=== PATIENT | female | born 1990 | race Caucasian/White ===

== ENCOUNTER 2022-10-24 14:34 | Emergency (ER) | payer OTHER, SELFPAY ==
[2022-10-24 14:38] VITALS: BP 133/85; PULSE 65; RESP 18; TEMP 36.7; O2SAT 100; BMI 26.4
--- NOTE | 2022-10-24 15:03 | ED_ITS ---
HPI - General Adult General Date Seen: 10/24/22 Chief complaint: Urogenital Problems, Female Stated complaint: Abnormal Labs Time Seen by Provider: 10/24/22 14:46 Source: patient Mode of arrival: ambulatory Limitations: no limitations History of Present Illness HPI narrative: Patient is a 32-year-old woman who says she woke up in the middle the night with some dysuria. This persisted in the morning, and she used home UTI test to check for urinary tract infection. She said it was positive for leukocytes, indeterminate for nitrates and she thought she probably should be seen in clinic. She went to [facility] and was seen in urgent care where she says urinalysis was positive. Apparently she had other blood work done as well and her white blood cell count was 15, creatinine was reportedly 1 which she was told was on the ?high end of normal and it was recommended that she come get a CT scan because of concerns about possible pyelonephritis. Of note, she denies any fever, chills, flank pain, nausea, vomiting, or significant abdominal pain. She does have a little bit of suprapubic discomfort. At no time has she had severe abdominal or flank pain suggestive of kidney stone. She has no history of kidney stones. No suspicion of . She has had 1 previous UTI and this feels similar. She did take some ibuprofen this morning. General health is good, she denies any underlying medical history, allergies to azithromycin and hydrocodone. She does not smoke or drink. 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 Related Data Home Medications Medication Instructions Recorded Confirmed metoprolol succinate 25 mg 25 mg PO DAILY 10/24/22 10/24/22 tablet,extended release 24 hr Allergies Allergy/AdvReac Type Severity Reaction Status Date / Time azithromycin [From Zithromax] AdvReac Severe Verified 10/24/22 14:43 hydrocodone AdvReac Severe Verified 10/24/22 14:43 oxycodone AdvReac Severe Uncoded 10/24/22 14:43 Review of Systems Status of ROS: Reports: 10 or more systems reviewed and unremarkable except as noted in History and below PFSH PFSH Social History Smoking Status: Never smoker How often do you have a drink containing alcohol: monthly or less How often do you have six or more drinks on one occasion: Never AUDIT-C Alcohol total score: 1 Non-prescribed substance use: denies use Exam Narrative: Exam Narrative: Vital signs as noted above. In general, an alert, well-appearing patient. Head: Normocephalic, atraumatic. Eyes: Pupils are equal reactive. Extraocular movements are full. Conjunctivae are normal. ENT: Mucous membranes are moist. Throat is normal. Neck: Supple without lymphadenopathy. Heart: Regular rate and rhythm. No murmur or rub. Lungs: Clear bilaterally. No increased work of breathing, crackles or wheezes. Abdomen: Soft and nontender. No organomegaly. No CVA tenderness. Extremities: Well perfused. No edema. No calf tenderness. Pulses intact. Neurologic: Patient is alert and oriented to person and place. Speech is fluent. Face is symmetric. Moves all extremities equally. Affect: Normal. Skin: Warm and dry. Well perfused. Const: Vital Signs, click to edit/add: Vital Signs - 24 hr 10/24/22 14:38 Temperature 98.0 F Pulse Rate [Right Pulse Oximeter] 65 Respiratory Rate 18 Blood Pressure [Ri ght Upper Arm] 133/85 Pulse Oximetry 100 Oxygen Delivery Me thod Room Air Documenting provider has reviewed patient's vital signs: yes Course Course Hospital Course: I discussed with her that I do not really see an indication for CT scan here. Had a urinalysis done at clinic which reportedly showed findings consistent with urinary tract infection. She does not give a history which suggests kidney stone, which would be the only indication for CT scan. Her creatinine is normal. She is nontoxic in appearance. She does not describe any symptoms which are suggestive of pyelonephritis, and I discussed with her that in any case, this would be a diagnosis that we can make clinically. Did discuss with her that with her white blood cell count being slightly elevated, we could be a little more aggressive and treat for possible impending upper urinary tract infection and give her dose of IV antibiotics here. She declined any of these treatments, she said that she does not feel like she has pyelonephritis or kidney stones, she says she is very familiar with both of these working in labor and delivery. She feels that she just has urinary tract infection and would like to just do oral antibiotics. I think medically that is very reasonable. She is well aware of what to watch for and if she worsens, discussed with her that I would want her to come back and we can certainly pursue further treatment if she is not responding to antibiotics in the way that we would expect. Urine culture is presumably pending at clinic. Vital Signs Vital signs: Initial Vital Signs Temperature 98.0 F 10/24/22 14:38 Temperature Source Oral 10/24/22 14:38 Pulse Rate 65 10/24/22 14:38 Pulse Rhythm Regular 10/24/22 14:38 Pulse Strength 3+ Normal 10/24/22 14:38 Respiratory Rate 18 10/24/22 14:38 Blood Pressure 133/85 10/24/22 14:38 Blood Pressure Mean 101 10/24/22 14:38 Pulse Oximetry 100 10/24/22 14:38 Oxygen Delivery Method Room Air 10/24/22 14:38 Vital Signs Temperature 98.0 F 10/24/22 14:38 Pulse Rate 65 10/24/22 14:38 Respiratory Rate 18 10/24/22 14:38 Blood Pressure 133/85 10/24/22 14:38 Pulse Oximetry 100 10/24/22 14:38 Oxygen Delivery Method Room Air 10/24/22 14:38 Temperature 98.0 F 10/24/22 14:38 Pulse Rate 65 10/24/22 14:38 Respiratory Rate 18 10/24/22 14:38 Blood Pressure 133/85 10/24/22 14:38 Pulse Oximetry 100 10/24/22 14:38 Oxygen Delivery Method Room Air 10/24/22 14:38 Discharge Plan Discharge Clinical Impression: Urinary tract infection Patient Disposition: Home, Self-Care Condition: Stable Instructions: Urinary Tract Infection in Women (DC) Additional Instructions: Return to the ER for worsening symptoms such as fever, chills, vomiting, flank pain or other significant changes. Prescriptions: No Action metoprolol succinate 25 mg tablet extended release 24 hr 25 mg PO DAILY Follow Up/Referrals: Suzanne Em MD [Primary Care Provider] - Stand Alone Forms: [facility]est[facility] Info Instructions
== END 2022-10-24 15:13 | disposition home or self-care (01) ==
LOC: ED 15:10
PROVIDERS: Emergency Provider Emergency Medicine; PCP Family Medicine
DX: N39.0 Urinary tract infection, site not specified (principal)
CPT/HCPCS: 99283

== ENCOUNTER 2024-01-18 18:43 | Outpatient (CLI) | payer OTHER, SELFPAY ==
--- OUTSIDE RECORDS SUMMARY | 2024-01-19 03:17 | XMS_ITS | Clinical Summary ---
Author Organization [place] Address [address] [place] [address] Care Team Providers Care Advertising Operations Coordinator Name Role Phone No Ref-Primary, Physician Primary [...] of Treatment Not on file Care Teams Advertising Operations Coordinator Relationship Specialty Start Date End Date No Ref-Primary, Physician PCP - General 02/26/19
--- OUTSIDE RECORDS SUMMARY | 2024-01-19 03:17 | XMS_ITS | Referral Summary ---
Author Organization [place] Address [address] [place] [address] Care Team Providers Care Manager Sterile Processing Name Role Phone No Ref-Primary, Physician Primary [...] of Treatment Not on file Care Teams Manager Sterile Processing Relationship Specialty Start Date End Date No Ref-Primary, Physician PCP - General 02/26/19
--- OUTSIDE RECORDS SUMMARY | 2024-01-19 03:18 | XMS_ITS | Clinical Summary ---
Author Organization [employer] [facility] Address [place], [place] [address] Care Team Providers Care Grinding Wheel Inspector Name Role Phone Cary Thao Primary Care [...] MDV (Flu Clinic Only) 09/07/2017,03/16/2016 COVID-19 vaccine ([employer] 30mcg/0.3mL) PF, MDV 07/05/2020,06/15/2020 DTP 12/21/1992, 0,1988,1987,1988 [...] 9 ANABEL Hollis,BG LYN KJR Complications:None Delivery Location:[facility] Last Filed Vital Signs Vital Sign Reading [...] 16 Negative Negative 03/24/2022 1:59 PM CDT [facility] TYPE 18 Negative Negative 03/24/2022 1:59 PM CDT [facility] TRAL LABORATORY OTHER HIGH RISK TYPES Negative Negative 03/24/2022 1:59 PM CDT [facility] Other (Cervical) Non-Blood / Unknown 03/22/2022 11:34 AM CDT 03/23/2022 11:26 AM CDT Narrative [facility] - 03/24/2022 1:59 PM CDT HPV types 16, 18, 31, 33, 35, 39, 45, 51, 52, 56, 58, 59, 66 and 68 DNA were undetectable or below the pre-set threshold. Methodology: Mariaa Fredis 4800 HPV Test Suzanne Em MD MICROBIOLOGY [facility] [address] [place] [address], from Last 3 Months or Most Recently Relevant to Health Maintenance Advance Directives * Full Code (Latest Code Status on File) Date Activated Date Inactivated Comments 01/24/2018 9:39 PM 01/26/2018 2:57 PM Care Teams Grinding Wheel Inspector Relationship Specialty Start Date End Date Cary Thao PA [address] [place] [address] PCP - General Physician College Director 01/15/20
--- OUTSIDE RECORDS SUMMARY | 2024-01-19 03:18 | XMS_ITS | Clinical Summary ---
Author Organization [facility] Address [address] [place] [address] Care Team Providers Care Diesel Pile Hammer Operator Name Role Phone Ai Phillips MD Primary Care Provider Source Comments You are receiving this document as you are listed as the primary care provider,follow-up provider, or the patient has been referred to you for consultation.This is in compliance with the Medicare and[facility] EHR Incentive Program,which states Providers who transition their patient to another setting of careor provider of care or refers their patient to another provider of care shouldprovide summary care record for each transition of care or referral. [facility] Allergies No known active allergies [...] age to complete this topic Care Teams Diesel Pile Hammer Operator Relationship Specialty Start Date End Date Ai Phillips MD [address] [place] [address] PCP - General Family Practice 04/05/17
== END 2024-01-18 18:44 | disposition home or self-care (01) ==
LOC: AMB 01-19 03:16
PROVIDERS: PCP Family Medicine; Visit Provider Student in an Organized Health Care Education/Training Program
DX: S09.90XA Unspecified injury of head, initial encounter (principal); V49.69XA Unspecified car occupant injured in collision with other motor vehicles in traffic accident, initial encounter; Y92.410 Unspecified street and highway as the place of occurrence of the external cause
CPT/HCPCS: A0998

== ENCOUNTER 2024-01-18 19:33 | Emergency (ER) | payer OTHER, SELFPAY ==
--- OUTSIDE RECORDS SUMMARY | 2024-01-18 19:37 | XMS_ITS | Clinical Summary ---
Author Organization [facility] Address [address] [place] [id number] Care Team Providers Care Patient Access Registrar Name Role Phone No Ref-Primary, Physician Primary Care Provider Allergies Active Allergy Reactions Criticality Noted Date Comments Azithromycin Other (See Comments) 07/04/2018 Diarrhea, cramping, and nausea Oxycodone-Acetaminophen GI Disturbance,Nausea and Vomiting 09/18/2017 Medications Medication Sig Dispensed Refills Start Date End Date Status Magnesium Oxide 250 MG TABS 06/18/2015 Active metoprolol succinate ER (TOPROL-XL) 25 MG 24 hr tabletIndications:Pa lpitations,MVP (mitral valve prolapse) Take 1 tablet (25 mg) by mouth daily 90 tablet 3 02/26/2019 Active FLUoxetine (PROZAC) 20 MG capsuleIndications:A nxiety Take 1 capsule (20 mg) by mouth daily 90 capsule 01/16/2020 Active Active Problems Problem Noted Date Diagnosed Date History of viral meningitis - 2015. Consulted with neurology and was advised to take magnesium. 02/26/2019 Anxiety 02/26/2019 MVP (mitral valve prolapse) - Dx'd 2009 after sx of palpitations. Last cardiology consult/echo 2018 was normal no evidence for MVP. Could discontinue meds, but pt notes improvement so will continue. 02/26/2019 Palpitations - from MVP 02/26/2019 H/O breast augmentation 06/18/2007 Immunizations Name Administration Dates Next Due Flu, Unspecified 04/28/2015 Hepatitis B, Peds 07/18/2000, 1,02/07/2000,1999 Historical DTP/aP 12/21/1992, 0,1988,1987,1988 Influenza Vaccine >6 months,quad, PF ,04/05/2018,09/07/2017,2015 Influenza Vaccine, 6+MO IM (QUADRIVALENT W/PRESERVATIVES) 09/07/2017,03/16/2016 MMR 01/10/2000,04/06/1989 OPV, trivalent, live 12/21/1992,07/02/18 90,1988,1987 TDAP Vaccine (Adacel) 10/31/2017,02/01/2017 Td (Adult), Adsorbed 01/10/2000 Family History Medical History Relation Comments Anxiety Disorder Maternal Grandmother Cerebrovascular Disease Paternal Uncle 50's Anxiety Disorder Sister Depression Sister Breast Cancer No family hx of Colon Cancer No family hx of Coronary Artery Disease No family hx of Diabetes No family hx of Hyperlipidemia No family hx of Hypertension No family hx of Thyroid Disease No family hx of Relation Status Comments Maternal Grandmother Paternal Uncle Sister Social History Tobacco Use Types Packs/Day Years Used Date Smoking Tobacco: Never Smokeless Tobacco: Never Alcohol Use Standard Drinks/Week Comments Yes 0 (1 standard drink = 0.6 oz pure alcohol) Occasional - no more than 1 drink/day. PHQ-2 Answer Date Recorded PHQ-2 Score 0 02/26/2019 Adolescent Education Answer Date Record ed Getting School Help Needed Not on file 04/01 Sex and Gender Information Value Date Recorded Sex Assigned at Female 02/24/2019 9:03 AM CDT Gender Identity Female 02/24/2019 9:03 AM CDT Sexual Orientation Straight 02/24/2019 9: 03 AM CDT Last Filed Vital Signs Vital Sign Reading Time Taken Comments Blood Pressure 98/58 02/26/2019 8:29 AM CDT Pulse 79 02/26/2019 8:29 AM CDT Temperature 36.8 ??C (98.3 ??F) 02/26/2019 8:29 AM CD T Respiratory Rate - - Oxygen Saturation 99% 02/26/2019 8:29 AM CDT Inhaled Oxygen Concentration - - Weight 64 kg (141 lb) 02/26/2019 8:29 AM CDT Height 162.6 cm (5' 4) 02/26/2019 8:29 AM CDT Body Mass Index 24.2 02/26/2019 8:29 AM CDT Plan of Treatment Not on file Care Teams Patient Access Registrar Relationship Specialty Start Date End Date No Ref-Primary, Physician PCP - General 02/26/19
--- OUTSIDE RECORDS SUMMARY | 2024-01-18 19:37 | XMS_ITS | Referral Summary ---
Author Organization [facility] Address [address] [place] [id number] Care Team Providers Care Teacher Of The Sight Impaired Name Role Phone No Ref-Primary, Physician Primary [...] Vaccine (Adacel) 10/31/2017,02/01/2017 Td (Adult), Adsorbed 01/10/2000 Social History Tobacco Use Types Packs/Day Years [...] of Treatment Not on file Care Teams Teacher Of The Sight Impaired Relationship Specialty Start Date End Date No Ref-Primary, Physician PCP - General 02/26/19
--- OUTSIDE RECORDS SUMMARY | 2024-01-18 19:37 | XMS_ITS | Clinical Summary ---
Author Organization [facility] Address [place], [place] [address] Care Team Providers Care Director Of Payroll Name Role Phone Cary Thao Primary Care Provider Allergies Active Allergy Reactions Criticality Noted Date Comments Hydrocodone-Acetaminoph en GI Upset 09/18/2017 Oxycodone-Acetaminophen GI Upset 09/18/2017 Azithromycin Other - Describe In Comment Field 07/04/2018 Diarrhea, cramping, and nausea Medications Medication Sig Dispensed Refills Start Date End Date Status FLUoxetine (PROZAC) 40 mg capsuleIndications: Anxiety Take 1 Capsule (40 mg) by mouth every morning. 90 Capsule 3 03/22/2022 Active triamcinolone (ARISTOCORT; KENALOG) 0.1 % creamIndications:Sk in fissure Apply topically to affected area(s) three times daily. 15 g 03/22/2022 Active metoprolol succinate (TOPROL XL) 25 mg Sustained-Release tabletIndications:P alpitations TAKE 1 TABLET (25 MG) BY MOUTH ONCE DAILY. 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 Last TTE 2012. 05/19/2015 Anxiety 05/19/2015 Medication exposure during first trimester of pr egnancy Immunizations Name Administration Dates Next Due AMB INFLUENZA, IIV4 (AGE=>6M OS) MDV (Flu Clinic Only) 09/07/2017,03/16/2016 COVID-19 vaccine (Revision [employer] NTMT[employer]or 30mcg/0.3mL) PF, MDV 07/05/2020,06/15/2020 DTP 12/21/1992, 0,1988,1987,1988 Hepatitis B (Peds) 07/18/2000, 1,02/07/2000,1999 Influenza Virus, Unspecified 04/28/2015 Influenza, IIV4 03/22/2022, 9,04/05/2018,2017,03/16/2016 MMR 01/10/2000,04/06/1989 Oral Polio Vaccine 12/21/1992, 0,1988,1987 Td (Age >=7 Years) 01/10/2000 Tdap 10/31/2017,02/01/2017 Family History Medical History Relation Name Comments Good Health Father Cancer-prostate Maternal Grandfather Heart attack Maternal Grandfather 80s Good Health Mother Cancer-prostate Paternal Grandfather Heart failure Paternal Grandfather Stroke Paternal Grandmother Anxiety disorder Sister Depression Sister Relation Name Status Comments Father Maternal Grandfather Mother Paternal Grandfather Paternal Grandmother Sister Social History Tobacco Use Types Packs/Day Years Used Date Smoking Tobacco: Never Smokeless Tobacco: Never Tobacco Cessation:Counseling Given: Yes Alcohol Use Standard Drinks/Week Comments Yes 0 (1 standard drink = 0.6 oz pur e alcohol) On Occasion- not often PHQ-2 Answer Date Recorded PHQ-2 TOTAL SCORE 1 03/22/2022 Social Connections Answer Date Recorded Frequency of Communication with Friends and Fami ly Not on file 06/18/2021 Financial Resource Strain Answer Date R ecorded Difficulty of Paying Living Expenses Not on file 06/18/2021 Difficulty of Paying Living Expenses Not on file 06/18/2021 Sex and Gender Information Value Date Recorded Sex Assigned at Not on file Gender Identity Not on file Sexual Orientation Not on file Obstetrics History Para Term AB IAB SAB Ectopic Multiple Livin g Live Births 3 3 3 3 3 Date Outcome GA Total Labor Labor/2nd/3rd Weight Sex Type Anes PTL Prerna A1 A5 Name Clin 2011 Term 40w 2d 2.75 kg (6 lb 1 oz) M Vag-S pont Livin g 2012 Term 38w 0d 2.66 kg (5 lb 14 oz) M Vag-S pont Livin g 2017 Term 40w 4d 9h 00m 3.02 kg (6 lb 10.4 oz) F Vag-S pont Epidur al Livin g 9 9 ANABEL Hollis,BG LYN KJR Complications:None Delivery Location:[facility] Last Filed Vital Signs Vital Sign Reading Time Taken Comments Blood Pressure 105/70 10/24/2022 1:24 PM CDT Pulse 53 10/24/2022 1:24 PM CDT Temperature 36.5 ??C (97.7 ??F) 10/24/2022 1:24 PM CD T Respiratory Rate 16 01/26/2018 7:10 AM CDT Oxygen Saturation 99% 10/24/2022 1:24 PM CDT Inhaled Oxygen Concentration - - Weight 70.2 kg (154 lb 11.2 oz) 10/24/2022 1:24 PM CDT Height 163.8 cm (5' 4.5) 03/22/2022 11 :13 AM CDT Body Mass Index 26.14 03/22/2022 11:13 AM CDT Plan of Treatment Health Maintenance Due Date Last Done Comments HIV for age 15-65 01/01/2003 Hepatitis C screening for age 18-79 01/01/2006 COVID-19 vaccine series ( season) 2023 07/05/2020, 06/15/2020 BMI (ht and wt on same day) for age 18+ 03/22/2023 03/22/2022, 06/02/2021, 01/18/2021, Additional history exists Depression screening for age 12+ 03/22/2023 03/22/2022, 01/18/2021, 01/21/2020, Additional history exists Influenza for age 9-49 02/17/2024 , 03/14/2019, 04/05/2018, Additional history exists Pap test for age 21-65 03/22/2027 2, 03/22/2022, 05/19/2015 Tetanus booster 11/01/2027 10/31/2017, 01/16, 01/10/2000 Tdap Completed 10/31/2017, 02/01/2017 Pneumococcal series for age 6-64 Aged Out No longer eligible based on patient's age to complete this topic Procedures Procedure Name Priority Date/Time Associated Diagnosis Comments HPV THIN PREP Routine 03/22/2022 11:34 AM CDT Screening for cervical cancer from Last 3 Months or Most Recently Relevant to Health Maintenance Results * HPV HIGH RISK (03/22/2022 11:34 AM CDT) TYPE 16 Negative Negative 03/24/2022 1:59 PM CDT [facility] TYPE 18 Negative Negative 03/24/2022 1:59 PM CDT [facility] OTHER HIGH RISK TYPES Negative Negative 03/24/2022 1:59 PM CDT [facility] Other (Cervical) Non-Blood / Unknown 03/22/2022 11:34 AM CDT 03/23/2022 11:26 AM CDT Narrative [facility] - 03/24/2022 1:59 PM CDT HPV types 16, 18, 31, 33, 35, 39, 45, 51, 52, 56, 58, 59, 66 and 68 DNA were undetectable or below the pre-set threshold. Methodology: Mariaa Fredis 4800 HPV Test Suzanne Em MD MICROBIOLOGY [facility] [address] [place] [address], from Last 3 Months or Most Recently Relevant to Health Maintenance Advance Directives * Full Code (Latest Code Status on File) Date Activated Date Inactivated Comments 01/24/2018 9:39 PM 01/26/2018 2:57 PM Care Teams Director Of Payroll Relationship Specialty Start Date End Date Cary Thao PA [address] [place] [address] PCP - General Physician [employer] 01/15/20
--- OUTSIDE RECORDS SUMMARY | 2024-01-18 19:37 | XMS_ITS | Clinical Summary ---
Author Organization [facility] Address [address] [place] [address] Care Team Providers Care Warehouse Administrative Assistant Name Role Phone Ai Phillips MD Primary Care Provider Source Comments You are receiving this document as you are listed as the primary care provider,follow-up provider, or the patient has been referred to you for consultation.This is in compliance with the Medicare and[facility] Cent[facility]aid EHR Incentive Program,which states Providers who transition their patient to another setting of careor provider of care or refers their patient to another provider of care shouldprovide summary care record for each transition of care or referral. [facility] Allergies No known active allergies Medications Medication Sig Dispensed Refills Start Date End Date Status metoprolol succinate (TOPROL XL) 50 MG 24 hour release tablet Take 50 mg by mouth daily. 4 03/07/2017 Active FLUoxetine (PROZAC) 20 MG capsule Take 20 mg by mouth every morning. 0 03/16/2017 Active magnesium oxide (AKA MAG-OX) 500 MG tablet Take 500 mg by mouth daily. Active MV & Min w/FA-DHA ( ADULT GUMMY/DHA/FA OR) Ac tive Immunizations Name Administration Dates Next Due Tdap 02/01/2017 Family History Medical History Relation Name Comments Cancer, Breast Negative Family History Cancer, Ovary Negative Family History Social History Tobacco Use Types Packs/Day Years Used Date Smoking Tobacco: Never Smokeless Tobacco: Never Alcohol Use Standard Drinks/Week Comments Yes 0 (1 standard drink = 0.6 oz pur e alcohol) Sex and Gender Information Value Date Recorded Sex Assigned at Not on file Gender Identity Not on file Sexual Orientation Not on file Last Filed Vital Signs Vital Sign Reading Time Taken Comments Blood Pressure 111/63 04/06/2017 1:05 PM CDT Pulse 71 04/06/2017 1:05 PM CDT Temperature - - Respiratory Rate - - Oxygen Saturation - - Inhaled Oxygen Concentration - - Weight 58.1 kg (128 lb) 04/06/2017 1:05 PM CDT Height 163.2 cm (5' 4.25) 04/06/2017 1:05 PM CD T Body Mass Index 21.8 04/06/2017 1:05 PM CDT Plan of Treatment Health Maintenance Due Date Last Done Comments Cervical Cancer Screening Due 1988 Hep C Screening (Preventive Services) 1990 Adult Preventive Visit 01/01/2006 HepB (1) 01/01/2007 COVID-19 Vaccine (1 - 2022-2 4 season) 2023 Influenza (#1) 2024 DTaP/Tdap/Td (2 - Tdap) 02/01/2027 02/01/2017 Zoster/Shingles (1 of 2) 01/01/2038 HIV Screening (Preventive Services) Completed 06/18/2012 (Completed) HPV Vaccine Aged Out No longer eligi ble based on patient's age to complete this topic HepA Aged Out No longer eligi ble based on patient's age to complete this topic Hib Aged Out No longer eligi ble based on patient's age to complete this topic IPV (Polio) Aged Out No longer eligi ble based on patient's age to complete this topic MCV4 Aged Out No longer eligi ble based on patient's age to complete this topic Pneumococcal Aged Out No longer eligi ble based on patient's age to complete this topic Care Teams Warehouse Administrative Assistant Relationship Specialty Start Date End Date Ai Phillips MD [address] [place] [address] PCP - General Family Practice 04/05/17
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
[2024-01-18 19:43] VITALS: BP 136/78; PULSE 102; RESP 16; TEMP 36.7; O2SAT 99; BMI 24.1
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
[2024-01-18 20:05] VITALS: PULSE 100
[2024-01-18 20:07] LABS: Ur HCG Qualitative* Negative (Negative)
--- OUTSIDE RECORDS SUMMARY | 2024-01-18 20:12 | XMS_ITS | Clinical Summary ---
Author Organization [place] Address [address] [place] [id number] Care Team Providers Care Dry Chain Operator Name Role Phone No Ref-Primary, Physician Primary [...] of Treatment Not on file Care Teams Dry Chain Operator Relationship Specialty Start Date End Date No Ref-Primary, Physician PCP - General 02/26/19
--- OUTSIDE RECORDS SUMMARY | 2024-01-18 20:12 | XMS_ITS | Clinical Summary ---
Author Organization [facility] Address [place], [place] [address] Care Team Providers Care Breakdown Worker Name Role Phone Cary Thao Primary Care [...] MDV (Flu Clinic Only) 09/07/2017,03/16/2016 COVID-19 vaccine ([employer] NTTransactis 30mcg/0.3mL) PF, MDV 07/05/2020,06/15/2020 DTP 12/21/1992, 0,1988,1987,1988 [...] 9 ANABEL Hollis,BG LYN KJR Complications:None Delivery Location:[facility] ([facility] Last Filed Vital Signs Vital Sign [...] 16 Negative Negative 03/24/2022 1:59 PM CDT [facility] TYPE 18 Negative Negative 03/24/2022 1:59 PM CDT [facility] TR[facility] LAB[facility]ORY OTHER HIGH RISK TYPES Negative Negative 03/24/2022 1:59 PM CDT [facility] Other (Cervical) Non-Blood / Unknown 03/22/2022 11:34 AM CDT 03/23/2022 11:26 AM CDT Narrative [facility] - 03/24/2022 1:59 PM CDT HPV types 16, 18, 31, 33, 35, 39, 45, 51, 52, 56, 58, 59, 66 and 68 DNA were undetectable or below the pre-set threshold. Methodology: Mariaa Fredis 4800 HPV Test Suzanne Em MD MICROBIOLOGY [facility] [address] [place] [address], from Last 3 Months or Most Recently Relevant to Health Maintenance Advance Directives * Full Code (Latest Code Status on File) Date Activated Date Inactivated Comments 01/24/2018 9:39 PM 01/26/2018 2:57 PM Care Teams Breakdown Worker Relationship Specialty Start Date End Date Cary Thao PA [address] [place] [address] PCP - General Physician Tax Appraiser 01/15/20
--- OUTSIDE RECORDS SUMMARY | 2024-01-18 20:12 | XMS_ITS | Referral Summary ---
Author Organization [place] Address [address] [place] [address] Care Team Providers Care Senior Research Engineer Name Role Phone No Ref-Primary, Physician Primary [...] of Treatment Not on file Care Teams Senior Research Engineer Relationship Specialty Start Date End Date No Ref-Primary, Physician PCP - General 02/26/19
--- OUTSIDE RECORDS SUMMARY | 2024-01-18 20:13 | XMS_ITS | Clinical Summary ---
Author Organization [facility] Address [address] [place] [address] Care Team Providers Care Esl Instructional Assistant Name Role Phone Ai Phillips MD Primary Care Provider Source Comments You are receiving this document as you are listed as the primary care provider,follow-up provider, or the patient has been referred to you for consultation.This is in compliance with the Medicare and[facility] Cent[facility]aid EHR Incentive Program,which states Providers who transition their patient to another setting of careor provider of care or refers their patient to another provider of care shouldprovide summary care record for each transition of care or referral. [facility] Allergies No known active allergies Medications Medication [...] age to complete this topic Care Teams Esl Instructional Assistant Relationship Specialty Start Date End Date Ai Phillips MD [address] [place] [address] PCP - General Family Practice 04/05/17
[2024-01-18] MEDS: ACETAMINOPHEN 500 MG TABLET 1000 MG PO (20:22)
[2024-01-18 21:10] VITALS: BP 123/79; PULSE 70; RESP 16; TEMP 36.5; O2SAT 99
== END 2024-01-18 22:00 | disposition home or self-care (01) ==
PROVIDERS: Emergency Provider Student in an Organized Health Care Education/Training Program; PCP Family Medicine
DX: S09.90XA Unspecified injury of head, initial encounter (principal); V43.52XA Car driver injured in collision with other type car in traffic accident, initial encounter
CPT/HCPCS: 36415; 70450; 72125; 81025; 84703; 99283; 99285; A9270